=== PATIENT | female | born 1930 | race Caucasian/White ===

== ENCOUNTER 2016-09-17 08:34 | Emergency (ER) | payer MEDICARE ==
[~2016-09-17] VITALS: Ht 154.9 cm; Wt 68.9 kg
[~2016-09-17 08:34] MED LIST: ACET-1651 PO; ASPI81TA84 PO; CALC-5 PO; CHOL400T23 PO; HYDR-2164 PO; LISI-127 PO; LOPERAMIDE; NIFE60TA58 PO; SOTA80TA42 PO
[2016-09-17 08:36] VITALS: Ht 154.9 cm; Wt 68.9 kg
--- OUTSIDE RECORDS SUMMARY | 2016-09-17 08:39 | XMS REPORT | Referral Summary ---
Author Author [facility] Organization [facility] Address Unknown Phone Unavailable Care Team Providers Care Software Quality Test Engineer Name Role Phone Chun Olivo Primary Care Physician [phone] Encounter VC Date(s): 04/23/15 - 04/23/15 [facility] [address] [place] [address] [place] [id number] Discharge Diagnosis: Trochanteric bursitis of left hip Discharge Diagnosis: Osteoarthritis of left knee Discharge Disposition: 01-Home or Self Care Attending Physician: Filipe Ramires MD Admitting Physician: Filipe Ramires MD Vital Signs Most recent to 1 oldest [Reference Range]: Temperature Tympanic 36.8 degC [36.6-38.1 degC] (04/23/15 10:28 AM) Respiratory Rate 20 br/min [14-20 br/min] (04/23/15 10:28 AM) Blood Pressure 132/74 mmHg [90-140/60-90 mmHg] (04/23/15 10:28 AM) SpO2 95 % (04/23/15 10:28 AM) Problem List Condition Effective Dates Status Health Status Informant Cervical Resolved degenerative disc disease(Confirmed) Cervical herniated Resolved disc(Confirmed) Cervical spinal Resolved stenosis(Confirmed) Coronary artery Resolved disease(Confirmed) Hyperlipidemia(Confi Resolved rmed) Hypertension(Confirm Resolved ed) Neck pain(Confirmed) Resolved radiculitis cervical Resolved upper neck pain(Confirmed) Spinal Resolved stenosis(Confirmed) Spondylosis - Resolved cervical(Confirmed) Thoracic Resolved degenerative disc disease(Confirmed) Allergies, Adverse Reactions, Alerts Substance Reaction Severity Status codeine Active gabapentin Muscle aches and pains in legs. Moderate Active lisinopril COUGH Active lovastatin Active mirtazapine night smith Active verapamil Active Medications aspirin 81 mg, Oral, Daily, 0 Refill(s) Start Date: 12/30/13 Status: Ordered atorvastatin 20 mg oral tablet 20 mg 1 tabs, Oral, Daily, # 90 tabs, 0 Refill(s), Pharmacy: [facility], 1 tabs Oral Daily Start Date: 08/09/15 Status: Ordered calcium citrate 500 mg, Oral, Daily, 0 Refill(s) Start Date: 12/30/13 Status: Ordered cyanocobalamin 1000 mcg sublingual tablet 1,000 mcg 1 tabs, SubLingual, Daily, # 90 tabs, 3 Refill(s), Pharmacy: [facility] #[id number], 1 tabs SubLingual Daily,x90 days Start Date: 08/04/15 Stop Date: 07/29/16 Status: Ordered Cymbalta 60 mg oral delayed release capsule 60 mg 1 caps, Oral, Daily, # 90 caps, 3 Refill(s), Pharmacy: [facility], 1 caps Oral Daily,x90 days Start Date: 08/04/15 Stop Date: 07/29/16 Status: Ordered hydrochlorothiazide 25 mg oral tablet 25 mg 1 tabs, Oral, Daily, X 90 days, # 90 tabs, 3 Refill(s), [facility]: [facility], 1 tabs Oral Daily,x90 days Start Date: 08/04/15 Stop Date: 07/29/16 Status: Ordered KLOTRIX 10MEQ TAB SR See Instructions, Take 1 tablet by mouth daily, # 90 tabs, eRx: [facility], Take 1 tablet by mouth daily Start Date: 06/08/15 Status: Ordered losartan 50 mg oral tablet 50 mg 1 tabs, Oral, Daily, X 90 days, # 90 tabs, 3 Refill(s), [facility]acy: [facility], 1 tabs Oral Daily,x90 days Start Date: 08/04/15 Stop Date: 07/29/16 Status: Ordered Nifedical XL 60 mg oral tablet, extended release 60 mg 1 tabs, Oral, Daily, X 90 days, # 90 tabs, 3 Refill(s), Pharmacy: [facility], 1 tabs Oral Daily,x90 days Start Date: 08/04/15 Stop Date: 07/29/16 Status: Ordered potassium chloride 10 mEq oral tablet, extended release 10 mEq 1 tabs, Oral, Daily, # 90 tabs, 3 Refill(s), Pharmacy: [facility], 1 tabs Oral Daily,x90 days Start Date: 08/04/15 Stop Date: 07/29/16 Status: Ordered PriLOSEC 20 mg oral delayed release capsule 20 mg 1 caps, Oral, Daily, # 30 caps, 0 Refill(s) Start Date: 10/27/15 Status: Ordered sotalol 80 mg oral tablet 40 mg 0.5 tabs, Oral, BID, X 90 days, # 90 tabs, 3 Refill(s), Pharmacy: [facility], 0.5 tabs Oral BID,x90 days Start Date: 08/04/15 Stop Date: 07/29/16 Status: Ordered Vitamin B12 1000 mcg oral tablet 1,000 mcg 1 tabs, Oral, Daily, # 30 tabs, 0 Refill(s) Start Date: 10/27/15 Status: Ordered Vitamin D3 400 intl units oral tablet 2 tabs, Oral, Daily, 0 Refill(s) Start Date: 12/30/13 Status: Ordered Results No data available for this section Immunizations Vaccine Date Refusal Reason influenza virus vaccine, inactivated 04/08/14 influenza virus vaccine, live 04/15/10 pneumococcal 23-polyvalent vaccine 05/12/08 pneumococcal 23-polyvalent vaccine 04/21/97 tetanus-diphth toxoids (Td) adult/adol 10/13/05 zoster vaccine live 05/08/14 Procedures Procedure Date Related Diagnosis Body Site CABG - Coronary artery bypass graft 2006 Colonoscopy1 2006 Hernia repair2 2005 Breast biopsy and related procedures3 2002 Flexible sigmoidoscopy 1998 Colonoscopy4 1996 Esophagogastroduodenoscopy 1996 Repair of bladder 1996 Lymph node biopsy5 1983 Hysterectomy and bilateral 1978 salpingo-oophorectomy sample Cholecystectomy6 1970 Tubal ligation - bilateral 1966 Lymph node biopsy7 1961 1hyperplastic polyp 2Right inguinal herniorrhaphy 3Right 4Also EGD and bladder repair operation 5Left cervical node biopsy 6Also appendectomy 7Right axilla Social History Social History Type Response Smoking Status Never smoker Assessment and Plan Extracted from: Title: Ambulatory Patient Education Author: Filipe Ramires MD Date: Family Medicine Hip Bursitis Bursitis is a swelling and soreness (inflammation) of a fluid-filled sac (bursa) . This sac overlies and protects the joints. CAUSES Injury. Overuse of the muscles surrounding the joint. Arthritis. Gout. Infection. Cold weather. Inadequate warm-up and conditioning prior to activities. The cause may not be known. SYMPTOMS Mild to severe irritation. Tenderness and swelling over the outside of the hip. Pain with motion of the hip. If the bursa becomes infected, a fever may be present. Redness, tenderness , and warmth will develop over the hip. Symptoms usually lessen in 3 to 4 weeks with treatment, but can come back. TREATMENT If conservative treatment does not work, your caregiver may advise draining the bursa and injecting cortisone into the area. This may speed up the healing process. This may also be used as an initial treatment of choice. HOME CARE INSTRUCTIONS Apply ice to the affected area for 15-20 minutes every 3 to 4 hours while awake for the first 2 days. Put the ice in a plastic bag and place a towel between the bag of ice and your skin. Rest the painful joint as much as possible, but continue to put the joint through a normal range of motion at least 4 times per day. When the pain lessens , begin normal, slow movements and usual activities to help prevent stiffness of the hip. Only take [id number] or prescription medicines for pain, discomfort, or fever as directed by your caregiver. Use crutches to limit weight bearing on the hip joint, if advised. Elevate your painful hip to reduce swelling. Use pillows for propping and cushioning your legs and hips. Gentle massage may provide comfort and decrease swelling. SEEK IMMEDIATE MEDICAL CARE IF: Your pain increases even during treatment, or you are not improving. You have a fever. You have heat and inflammation over the involved bursa. You have any other questions or concerns. MAKE SURE YOU: Understand these instructions. Will watch your condition. Will get help right away if you are not doing well or get worse. Document Released: 12/01/2002 Document Revised: 09/02/2012 Document Reviewed: ExitCare Patient Information 2015 [employer]. This information is not intended to replace advice given to you by your health care provider. Make sure you discuss any questions you have with your health care provider. Follow Up With: Where: When: [address]; Via [facility] [place] [address] Business (1) Within 3 to 5 days, only if needed Comments: Extracted from: Title: Office Visit Note Author: Filipe Ramires MD Date: 04/23/15 Assessment/Plan Osteoarthritis of left knee Orthopedic consultation will be scheduled. Trochanteric bursitis of left hip She will be scheduled for orthopedic evaluation and possible steroid injection.
--- OUTSIDE RECORDS SUMMARY | 2016-09-17 08:39 | XMS REPORT | Referral Summary ---
Author Author [facility] Organization [facility] Address Unknown Phone Unavailable Care Team Providers Care Through Operator Name Role Phone Chun Olivo Primary Care Physician [phone] Encounter VC Date(s): 05/02/16 - 05/02/16 [facility], [address] [place] [id number] Discharge Diagnosis: Acute bacterial bronchitis Discharge Disposition: 01-Home or Self Care Attending Physician: Chun Olivo DO Admitting Physician: Chun Olivo DO Vital Signs Most recent to 1 oldest [Reference Range]: Temperature Tympanic 37.0 degC [36.6-38.1 degC] (05/02/16 10:29 AM) Peripheral Pulse 82 bpm Rate [60-100 bpm] (05/02/16 10:29 AM) Respiratory Rate 18 br/min [14-20 br/min] (05/02/16 10:29 AM) Blood Pressure 132/78 mmHg [90-140/60-90 mmHg] (05/02/16 10:29 AM) SpO2 95 % (05/02/16 10:29 AM) Problem List Condition Effective Dates Status Health Status Informant Cervical Resolved degenerative disc disease(Confirmed) Cervical herniated Resolved disc(Confirmed) Cervical spinal Resolved stenosis(Confirmed) Coronary artery Resolved disease(Confirmed) Hyperlipidemia(Confi Resolved rmed) Hypertension(Confirm Resolved ed) Neck pain(Confirmed) Resolved Obesity(Confirmed) Active patient radiculitis cervical Resolved upper neck pain(Confirmed) Spinal Resolved stenosis(Confirmed) Spondylosis - Resolved cervical(Confirmed) Thoracic Resolved degenerative disc disease(Confirmed) Allergies, Adverse Reactions, Alerts Substance Reaction Severity Status codeine Active gabapentin Muscle aches and pains in legs. Moderate Active lisinopril COUGH Active lovastatin Active mirtazapine night smith Active verapamil Active Medications aspirin 81 mg, Oral, Daily, 0 Refill(s) Start Date: 12/30/13 Status: Ordered Calcium 500+D tabs, Chewed, BID, 0 Refill(s) Start Date: 02/11/16 Status: Ordered cyanocobalamin 1000 mcg sublingual tablet 1,000 mcg 1 tabs, SubLingual, Daily, # 90 tabs, 3 Refill(s), Pharmacy: [facility] #[id number], 1 tabs SubLingual Daily,x90 days Start Date: 08/04/15 Stop Date: 07/29/16 Status: Ordered Cymbalta 60 mg oral delayed release capsule 60 mg 1 caps, Oral, Daily, # 90 caps, 3 Refill(s), Pharmacy: [facility], 1 caps Oral Daily,x90 days Start Date: 08/04/15 Stop Date: 07/29/16 Status: Ordered hydrochlorothiazide 25 mg oral tablet 25 mg 1 tabs, Oral, Daily, X 90 days, # 90 tabs, 3 Refill(s), Pharmacy: [facility], 1 tabs Oral Daily,x90 days Start Date: 08/04/15 Stop Date: 07/29/16 Status: Ordered losartan 50 mg oral tablet [...] Daily, # 90 tabs, 3 Refill(s), Pharmacy: [facility], 1 tabs Oral Daily,x90 days Start Date: 08/04/15 Stop Date: 07/29/16 Status: Ordered predniSONE 20 mg oral tablet 20 mg 1 tabs, Oral, Daily, X 5 days, # 5 tabs, 0 Refill(s), Pharmacy: [facility] #[id number], 1 tabs Oral Daily,x5 days Start Date: 05/02/16 Stop Date: 05/07/16 Status: Ordered Promethazine with Codeine 6.25 mg-10 mg/5 mL oral syrup 5 mL, Oral, q6hr, as needed for cough, not to exceed 30 mL/24 hours, # 120 mL, 0 Refill(s) Start Date: 05/02/16 Stop Date: 06/01/16 Status: Ordered sotalol 80 mg oral tablet 40 mg 0.5 tabs, Oral, BID, X 90 days, # 90 tabs, 3 Refill(s), Pharmacy: [facility], 0.5 tabs Oral BID,x90 days Start Date: 08/04/15 Stop Date: 07/29/16 Status: Ordered Zithromax Z-Mikey 250 mg oral tablet 1 packets, Oral, Daily, as directed on package labeling, X 5 days, # 6 tabs, 0 Refill(s), Pharmacy: [facility] #[id number], 1 packets Oral Daily,x5 days, Instr:as directed on package labeling Start Date: 05/02/16 Stop Date: 05/07/16 Status: Ordered Results No data available for [...] smoker Assessment and Plan Extracted from: Title: Office Visit Note Author: Chun Olivo DO Date: 05/02/16 Assessment/Plan Acute bacterial bronchitis 1. Findings concerning for bacterial bronchitis 2. Zithromax taken as directed for 5 days 3. Prednisone 20 mg daily for 5 days 4. Promethazine with codeine, 5 mL every 6 hours as needed for coughing 5. Follow-up for worsening presentation Ordered: Office Visit Level 4 Est [address]180
--- OUTSIDE RECORDS SUMMARY | 2016-09-17 08:39 | XMS REPORT | Referral Summary ---
Author Author [facility] Organization [facility] Address Unknown Phone Unavailable Care Team Providers Care Continuing Education Specialist Name Role Phone Chun Olivo Primary Care Physician [phone] Encounter VC Date(s): 10/27/15 - 10/27/15 [facility] [address] [place] [address] [place] [id number] Discharge Diagnosis: Change in bowel habits Discharge Disposition: 01-Home or Self Care Attending Physician: Crow Aguayo MD Admitting Physician: Crow Aguayo MD Referring Physician: Chun Olivo DO Vital Signs Most recent to 1 oldest [Reference Range]: Temperature Tympanic 36.8 degC [36.6-38.1 degC] (10/27/15 11:01 AM) Blood Pressure 140/76 mmHg [90-140/60-90 mmHg] (10/27/15 11:01 AM) Problem List Condition Effective Dates Status [...] Daily, # 90 tabs, 0 Refill(s), Pharmacy: [facility], 1 tabs Oral Daily Start Date: 08/09/15 Status: Ordered calcium citrate 500 mg, Oral, Daily, 0 Refill(s) Start Date: 12/30/13 Status: Ordered cyanocobalamin 1000 mcg sublingual tablet 1,000 mcg 1 tabs, SubLingual, Daily, # 90 tabs, 3 Refill(s), Pharmacy: [facility] #[id number], 1 tabs SubLingual Daily,x90 days Start Date: [...] days, # 90 tabs, 3 Refill(s), Pharmacy: [facility], 1 tabs Oral Daily,x90 days [...] days, # 90 tabs, 3 Refill(s), Pharmacy: [facility], 1 tabs Oral Daily,x90 days [...] Daily, # 90 tabs, 3 Refill(s), Pharmacy: [facility], 1 tabs Oral Daily,x90 days Start Date: 08/04/15 Stop Date: 07/29/16 Status: Ordered PriLOSEC 20 mg oral delayed release capsule 20 mg 1 caps, Oral, Daily, # 30 caps, 0 Refill(s) Start Date: 10/27/15 Status: Ordered sotalol 80 mg oral tablet 40 mg 0.5 tabs, Oral, BID, X 90 days, # 90 tabs, 3 Refill(s), Pharmacy: [facility], 0.5 tabs Oral BID,x90 days [...] Extracted from: Title: Ambulatory Patient Education Author: Crow Aguayo MD Date: 10/26 Family Medicine Diarrhea Diarrhea is frequent loose and watery bowel movements. It can cause you to feel weak and dehydrated. Dehydration can cause you to become tired and thirsty, have a dry mouth, and have decreased urination that often is dark yellow. Diarrhea is a sign of another problem, most often an infection that will not last long. In most cases, diarrhea typically lasts 23 days. However, it can last longer if it is a sign of something more serious. It is important to treat your diarrhea as directed by your caregiver to lessen or prevent future episodes of diarrhea. CAUSES Some common causes include: Gastrointestinal infections caused by viruses, bacteria, or parasites. Food poisoning or food allergies. Certain medicines, such as antibiotics, chemotherapy, and laxatives. Artificial sweeteners and fructose. Digestive disorders. HOME CARE INSTRUCTIONS Ensure adequate fluid intake (hydration): Have 1 cup (8 oz) of fluid for each diarrhea episode. Avoid fluids that contain simple sugars or sports drinks , fruit juices, whole milk products, and sodas. Your urine should be clear or pale yellow if you are drinking enough fluids. Hydrate with an oral rehydration solution that you can purchase at pharmacies, retail stores, and online. You can prepare an oral rehydration solution at home by mixing the following ingredients together: tsp table salt. tsp baking soda. tsp salt substitute containing potassium chloride. 1 tablespoons sugar. 1 L (34 oz) of water. Certain foods and beverages may increase the speed at which food moves through the gastrointestinal (GI) tract. These foods and beverages should be avoided and include: Caffeinated and alcoholic beverages. High-fiber foods, such as raw fruits and vegetables, nuts, seeds, and whole grain breads and cereals. Foods and beverages sweetened with sugar alcohols, such as xylitol, sorbitol, and mannitol. Some foods may be well tolerated and may help thicken stool including: Starchy foods, such as rice, toast, pasta, low-sugar cereal, oatmeal, grits, baked potatoes, crackers, and bagels. Bananas. Applesauce. Add probiotic-rich foods to help increase healthy bacteria in the GI tract, such as yogurt and fermented milk products. Wash your hands well after each diarrhea episode. Only take owug-slw-gfttkhk or prescription medicines as directed by your caregiver. Take a warm bath to relieve any burning or pain from frequent diarrhea episodes. SEEK IMMEDIATE MEDICAL CARE IF: You are unable to keep fluids down. You have persistent vomiting. You have blood in your stool, or your stools are black and tarry. You do not urinate in 68 hours, or there is only a small amount of very dark urine. You have abdominal pain that increases or localizes. You have weakness, dizziness, confusion, or light-headedness. You have a severe headache. Your diarrhea gets worse or does not get better. You have a fever or persistent symptoms for more than 23 days. You have a fever and your symptoms suddenly get worse. MAKE SURE YOU: Understand these instructions. Will watch your condition. Will get help right away if you are not doing well or get worse. This information is not intended to replace advice given to you by your health care provider. Make sure you discuss any questions you have with your health care provider. Document Released: 06/01/2003 Document Revised: 10/26/2014 Document Reviewed: ExitCare Patient Information 2015 [employer], [employer]. No follow up information was provided.
--- OUTSIDE RECORDS SUMMARY | 2016-09-17 08:39 | XMS REPORT | Referral Summary ---
Author Author [facility], [facility] Organization [facility] Address Unknown Phone Unavailable Care Team Providers Care Edge Stainer Name Role Phone Chun Olivo Primary Care Physician [phone] Encounter VC Date(s): 02/11/16 - 02/11/16 [facility], [address] [place] [id number] Discharge Diagnosis: Greater trochanteric bursitis of left hip Discharge Diagnosis: History of decreased renal function Discharge Disposition: 01-Home or Self Care Attending Physician: Chun Olivo DO Admitting Physician: Chun Olivo DO Vital Signs Most recent to 1 oldest [Reference Range]: Temperature Tympanic 36.8 degC [36.6-38.1 degC] (02/11/16 10:24 AM) Peripheral Pulse 80 bpm Rate [60-100 bpm] (02/11/16 10:24 AM) Blood Pressure 128/62 mmHg [90-140/60-90 mmHg] (02/11/16 10:24 AM) Problem List Condition Effective Dates Status [...] Daily, # 90 tabs, 3 Refill(s), Pharmacy: [facility] #[id number], 1 tabs SubLingual Daily,x90 days Start Date: [...] Date: 08/04/15 Stop Date: 07/29/16 Status: Ordered sotalol 80 mg oral tablet 40 mg 0.5 tabs, Oral, BID, X 90 days, # 90 tabs, 3 Refill(s), Pharmacy: [facility], 0.5 tabs Oral BID,x90 days Start Date: 08/04/15 Stop Date: 07/29/16 Status: Ordered Results No data available for this section Immunizations Vaccine Date Refusal Reason influenza virus vaccine, inactivated 04/08/14 influenza virus vaccine, live 04/15/10 pneumococcal 23-polyvalent vaccine 05/12/08 pneumococcal 23-polyvalent vaccine 04/21/97 tetanus-diphth toxoids (Td) adult/adol 10/13/05 zoster vaccine live 05/08/14 Procedures Procedure Date Related Diagnosis Body Site Arthrocentesis, aspiration and/or injection, 02/11/16 major joint or bursa (eg, shoulder, hip, knee, subacromial bursa); without ultrasound guidance CABG - Coronary artery bypass graft 2006 Colonoscopy1 2006 Hernia repair2 2005 Breast biopsy and related procedures3 2002 Flexible sigmoidoscopy 1998 Colonoscopy1996 Esophagogastroduodenoscopy 1996 Repair of bladder 1996 Lymph node biopsy1983 Hysterectomy and bilateral 1978 salpingo-oophorectomy sample Cholecystectomy6 1970 Tubal ligation - bilateral 1966 Lymph node biopsy7 1961 1hyperplastic polyp 2Right inguinal herniorrhaphy 3Right 4Also EGD and bladder repair operation 5Left cervical node biopsy 6Also appendectomy 7Right axilla Social History Social History Type Response Smoking Status Never smoker Assessment and Plan Extracted from: Title: Office Visit Note Author: Chun Olivo DO Date: 02/11/16 Assessment/Plan 1.Greater trochanteric bursitis of left hip Clinical finding consistent with greater trochanteric bursitis. Repeat injection recommended to which the patient agreed. Procedure:Greater trochanteric bursa injection Location:Left hip Medication:2 mL of lidocaine without epinephrine, 2 mL of Marcaine and 80 mg of Kenalog. Description: Following informed consent the patient was laid in the right lateral recumbent position. The area for greatertrochanteric bursae was identified. The area was cleansed with Betadine to create a sterile field. Using sterile technique the combined above solution was injectedwithout difficulty. Dry dressing was applied and wound care instructions provided. Ordered: Arthro/Asp Major Joint Inj (Shoulder, Hip, Knee) Office Visit Level 3 Est 70896 2.History of decreased renal function 1. Her repeat lab is for normal renal function. 2. Avoid NSAIDs. 3. Follow-up as needed. Ordered: Office Visit Level 3 Est 19563 Pain in left hip As above. Ordered: Arthro/Asp Major Joint Inj (Shoulder, Hip, Knee)
--- OUTSIDE RECORDS SUMMARY | 2016-09-17 08:39 | XMS REPORT | Referral Summary ---
Author Author [facility], [facility] Organization [facility] Address Unknown Phone Unavailable Care Team Providers Care Editor Index Name Role Phone Chun Olivo Primary Care Physician [phone] Encounter VC Date(s): 10/07/15 - 10/07/15 [facility], [address] [place] [address] Discharge Diagnosis: Stress At Home Discharge Diagnosis: GERD (gastroesophageal reflux disease) Discharge Diagnosis: Change in bowel habit Discharge Disposition: 01-Home or Self Care Attending Physician: Chun Olivo DO Admitting Physician: Chun Olivo DO Vital Signs Most recent to 1 oldest [Reference Range]: Temperature Tympanic 36.7 degC [36.6-38.1 degC] (10/07/15 8:32 AM) Peripheral Pulse 74 bpm Rate [60-100 bpm] (10/07/15 8:32 AM) Blood Pressure 143/70 mmHg [90-140/60-90 mmHg] *HI* (10/07/15 8:32 AM) Problem List Condition Effective Dates Status [...] Daily, # 90 tabs, 0 Refill(s), [facility]: [email or web address], 1 tabs Oral Daily Start Date: 08/09/15 Status: Ordered calcium citrate 500 mg, Oral, Daily, 0 Refill(s) Start Date: 12/30/13 Status: Ordered cyanocobalamin 1000 mcg sublingual tablet 1,000 mcg 1 tabs, SubLingual, Daily, # 90 tabs, 3 Refill(s), Pharmacy: [facility] #[id number], 1 tabs SubLingual Daily,x90 days Start Date: 08/04/15 Stop Date: 07/29/16 Status: Ordered Cymbalta 60 mg oral delayed release capsule 60 mg 1 caps, Oral, Daily, # 90 caps, 3 Refill(s), [facility]: [facility], 1 caps Oral Daily,x90 days Start Date: 08/04/15 Stop Date: 07/29/16 Status: Ordered hydrochlorothiazide 25 mg oral tablet 25 mg 1 tabs, Oral, Daily, X 90 days, # 90 tabs, 3 Refill(s), [facility], 1 tabs Oral Daily,x90 days Start [...] days, # 90 tabs, 3 Refill(s), [facility]: [facility], 1 tabs Oral Daily,x90 days Start Date: 08/04/15 Stop Date: 07/29/16 Status: Ordered Nifedical XL 60 mg oral tablet, extended release 60 mg 1 tabs, Oral, Daily, X 90 days, # 90 tabs, 3 Refill(s), [facility]acy: [facility], 1 tabs Oral Daily,x90 days Start Date: 08/04/15 Stop Date: 07/29/16 Status: Ordered potassium chloride 10 mEq oral tablet, extended release 10 mEq 1 tabs, Oral, Daily, # 90 tabs, 3 Refill(s), [facility], 1 tabs Oral Daily,x90 days Start Date: 08/04/15 Stop Date: 07/29/16 Status: Ordered sotalol 80 mg oral tablet 40 mg 0.5 tabs, Oral, BID, X 90 days, # 90 tabs, 3 Refill(s), Pharmacy: [facility], 0.5 tabs Oral BID,x90 days Start Date: 08/04/15 Stop Date: 07/29/16 Status: Ordered Vitamin D3 400 intl units [...] Visit Note Author: Chun Olivo DO Date: 10/07/15 Assessment/Plan Change in bowel habit 1. We will refer her to Dr. Recio for farther evaluation regarding the changes in bowel habit and determining if she needs upper and lower GI evaluation. Ordered: Office Visit Level 4 Est 55851 GERD (gastroesophageal reflux disease) 1. Recommended omeprazole 20 mg daily. She may add Zantac 75 milligrams twice a day. 2. Follow up if worsening presentation. Ordered: Office Visit Level 4 Est 16816 Stress At Home 1. We had a long discussion regarding her stressors related to her property. I recommended that she tries sitting down with her [id number] and figuring out an amicable solution together dispute. 2. Over 25 minutes were spent [id number] with this patient today, greater than 50 percent of the time was spent with counseling.
--- OUTSIDE RECORDS SUMMARY | 2016-09-17 08:39 | XMS REPORT | Continuity of Care Document ---
Author Author [facility] Organization [facility] Address Unknown Phone Unavailable Allergies Medications Problems Procedures Results Encounters ACCT No. Visit Date/Time Discharge Status Pt. Type Provider Facility Loc./Unit Complaint [id number] 09/10/2013 13:24:00 09/10/2013 23 :59:59 CLS Outpatient [id number] 07/09/2013 13:59:00 07/09/2013 23 :59:59 CLS Outpatient
--- OUTSIDE RECORDS SUMMARY | 2016-09-17 08:39 | XMS REPORT | Referral Summary ---
Author Author [facility] Organization [facility] Address Unknown Phone Unavailable Care Team Providers Care Knifeman Name Role Phone Chun Olivo Primary Care Physician [phone] Encounter VC Date(s): 11/03/15 - 11/03/15 [facility], [address] [place] [address] Discharge Diagnosis: HTN (hypertension) Discharge Diagnosis: Change in bowel habit Discharge Diagnosis: Mixed hyperlipidemia Discharge Disposition: 01-Home or Self Care Attending Physician: Chun Olivo DO Admitting Physician: Chun Olivo DO Vital Signs Most recent to 1 oldest [Reference Range]: Temperature Tympanic 36.4 degC [36.6-38.1 degC] *LOW* (11/03/15 8:43 AM) Apical Heart Rate 84 bpm [60-100 bpm] (11/03/15 8:43 AM) Blood Pressure 132/72 mmHg [90-140/60-90 mmHg] (11/03/15 8:43 AM) SpO2 95 % (11/03/15 8:43 AM) Problem List Condition Effective Dates Status [...] Daily, # 90 tabs, 3 Refill(s), Pharmacy: [facility] #[id number], 1 tabs SubLingual Daily,x90 days Start Date: [...] days, # 90 tabs, 3 Refill(s), [facility], 1 tabs Oral Daily,x90 days Start [...] Daily, # 90 tabs, 3 Refill(s), [facility], 1 tabs Oral Daily,x90 days [...] Hysterectomy and bilateral 1978 salpingo-oophorectomy sample Cholecystectomy6 1969 Tubal ligation - bilateral 1966 Lymph node biopsy7 1961 1hyperplastic polyp 2Right inguinal herniorrhaphy 3Right 4Also EGD and bladder repair operation 5Left cervical node biopsy 6Also appendectomy 7Right axilla Social History Social History Type Response Smoking Status Never smoker Assessment and Plan Extracted from: Title: Office Visit Note Author: Chun Olivo DO Date: 11/03/15 Assessment/Plan Change in bowel habit 1. Since she continues to have painful bowel movements I recommended she follow-up with Dr. Recio. Patient voiced understanding. Ordered: Office Visit Level 4 Est 41989 CKD (chronic kidney disease) stage 3, GFR 30-59 ml/min 1. Recent labs demonstrate CKD stage III. 2. Pathophysiology of this presentation was discussed in detail with the patient. 3. Repeat basic metabolic profile in 3 months. If worsening presentation then we may need to adjust her medications in addition to considering sending her to nephrology. Ordered: Office Visit Level 4 Est 12622 HTN (hypertension) 1. Blood pressures well controlled. Continue with same regimen of medications. 2. Low salt diet recommended. 3. Follow-up in 6 months for reevaluation. Ordered: Office Visit Level 4 Est 80795 Mixed hyperlipidemia 1. Her cholesterol and LDL has improved significantly with the atorvastatin. 2. Continue with atorvastatin 20 mg daily. 3. Recheck lipids in one year. Ordered: Office Visit Level 4 Est 16550
--- OUTSIDE RECORDS SUMMARY | 2016-09-17 08:39 | XMS REPORT | Referral Summary ---
Author Author [facility] Organization [facility] Address Unknown Phone Unavailable Care Team Providers Care Manufacturing Analyst Name Role Phone BenignoChun mason Primary Care Physician [phone] Encounter VC Date(s): 11/02/14 - 11/02/14 [facility] [address] [facility] [place], [place] [address] Discharge Diagnosis: Calcaneal fracture Discharge Disposition: 01-Home or Self Care Attending Physician: Ken Child DPM Admitting Physician: Ken Child DPM Vital Signs No data available for this section Problem List Condition Effective Dates Status Health [...] 0 Refill(s) Start Date: 12/30/13 Status: Ordered calcium citrate 500 mg, Oral, Daily, 0 Refill(s) Start Date: 12/30/13 Status: Ordered Cymbalta 60 mg oral delayed release capsule 60 mg 1 caps, Oral, Daily, # 90 caps, 0 Refill(s), Pharmacy: [facility], 1 caps Oral Daily Start Date: 03/10/15 Status: Ordered hydrochlorothiazide 25 mg oral tablet 25 mg, Oral, Daily, # 90 tabs, 0 Refill(s), [facility]: [facility], 25 mg Oral Daily Start Date: 03/10/15 Status: Ordered losartan 50 mg oral tablet 1 tabs, Oral, Daily, # 90 tabs, 3 Refill(s), [facility], 1 tabs Oral Daily,x90 days Start Date: 04/17/14 Stop Date: 04/12/15 Status: Ordered Nifedical XL 60 mg oral tablet, extended release See Instructions, Take 1 tablet by mouth daily, # 90 unknown unit, [facility]Rx: [facility], Take 1 tablet by mouth daily Start Date: 02/09/15 Status: Ordered potassium chloride 10 mEq oral tablet, extended release See Instructions, TAKE ONE TABLET BY MOUTH DAILY, # 90 tabs, 3 Refill(s), Pharmacy: [facility], TAKE ONE TABLET BY MOUTH DAILY Start Date: 04/17/14 Status: Ordered sotalol 80 mg oral tablet See Instructions, Take one-half tablet by mouth twice daily, # 90 tabs, 0 Refill (s), Pharm[facility]: [facility], Pt needs to schedule appointment before additional refills will be sent., Take one-half tablet by mouth twice daily Start Date: 02/16/15 Status: Ordered Vitamin D3 400 intl units [...] Extracted from: Title: Office Visit Note Author: Ken Child DPM Date: 11/02/14 Assessment/Plan Calcaneal fracture Date of injury 09/25/2014. Patient may weight-bear as tolerated in tennis shoe around the house. Advised patient to wear cam walker outside of house next 2 weeks and may transition into regular shoe gear as tolerated thereafter. Follow-up if condition worsens.
--- OUTSIDE RECORDS SUMMARY | 2016-09-17 08:39 | XMS REPORT | Referral Summary ---
Author Author [facility] Organization [facility] Address Unknown Phone Unavailable Care Team Providers Care Pocketed Spring Assembler Name Role Phone Bryan Ramires Primary Care Physician [phone] Encounter Date(s): 11/02/14 - 11/02/14 [facility] 1944 [facility] [place], [place] [address] Discharge Diagnosis: Calcaneal fracture Discharge Disposition: 01-Home [...] Daily, # 90 caps, 0 Refill(s), Pharmacy: [facility], 1 caps Oral Daily Start Date: 03/10/15 Status: Ordered hydrochlorothiazide 25 mg oral tablet 25 mg, Oral, Daily, # 90 tabs, 0 Refill(s), [facility], 25 mg Oral Daily Start Date: 03/10/15 Status: Ordered losartan 50 mg oral tablet 1 tabs, Oral, Daily, # 90 tabs, 3 Refill(s), [facility], 1 tabs Oral Daily,x90 days Start Date: 04/17/14 Stop Date: 04/12/15 Status: Ordered Nifedical XL 60 mg oral tablet, extended release See Instructions, Take 1 tablet by mouth daily, # 90 unknown unit, [facility]: [facility], Take 1 tablet by mouth daily Start Date: 02/09/15 Status: Ordered potassium chloride 10 mEq oral tablet, extended release See Instructions, TAKE ONE TABLET BY MOUTH DAILY, # 90 tabs, 3 Refill(s), Pharm[facility]: [facility], TAKE ONE TABLET BY MOUTH DAILY Start Date: 04/17/14 Status: Ordered sotalol 80 mg oral tablet See Instructions, Take one-half tablet by mouth twice daily, # 90 tabs, 0 Refill (s), [facility], Pt needs to schedule appointment [...]
--- OUTSIDE RECORDS SUMMARY | 2016-09-17 08:40 | XMS REPORT | Continuity of Care Document ---
Author Author Daisy Briggs LPN, [facility] Ambulatory Address [address] [place] [id number] Phone Unavailable Care Team Providers Care Outside Cutter Hand Name Role Phone Filipe Ramires CHANELLE Unavailable Payers Payer name Insurance type Covered republican ID Authorization(s) Unknown Problems Condition Effective Dates (start - stop) Clinical Status Abdominal pain, generalized - *Chronic Subscapular pain - *Acute UTI (urinary tract infection) - *Acute Tinea pedis - *Acute Ischemic heart disease - *Chronic Abdominal pain - Episodic Cardiac dysrhythmia, unspecified - Episodic Hypertension, Benign - *Chronic Sinusitis, acute - *Acute GERD - *Controlled Dysphagia, unspecified - *Acute GERD - *Controlled CAD, Unspecified - *Chronic Hypertension, Benign - *Chronic Edema - *Resolved Pain in limb - *Acute Backache - *Chronic Chronic ischemic heart disease, unspecified - *Chronic Hypertension, Benign - *Chronic 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 - CERVICAL DISC DISPLACMNT - 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 - CERVICAL SPINAL STENOSIS - CERVICALGIA - BRACHIAL NEURITIS NOS - PURE HYPERCHOLESTEROLEM - BENIGN HYPERTENSION - Abdominal pain, other specified site - Episodic Constipation, unspecified - *Chronic Chronic ischemic heart disease, unspecified - *Chronic Cardiac dysrhythmia, unspecified - Episodic Hypertension, Benign - *Chronic Back pain - *Chronic Actinic keratosis - *Acute Allergic rhinitis, cause unspecified - Episodic Depression - *Acute Abdominal pain, left lower quadrant - Intermittent Chronic ischemic heart disease, unspecified - *Chronic Knee pain, left Fe - *Chronic Abdominal Pain - *Acute Chronic ischemic heart disease, unspecified - *Chronic Lumbago - *Acute Diarrhea - *Acute Nausea alone - *Acute Hyponatremia - *Acute Arrhythmia - *Controlled Depression - Improved Hypertension, Benign - *Chronic Chronic ischemic heart disease, unspecified - *Chronic Hypercholesterolemia - *Chronic Dysuria - *Acute Thrombosed external hemorrhoid - *Acute Chronic ischemic heart disease, unspecified - *Chronic Weakness of both legs - Episodic Dyspnea - *Chronic Statin intolerance - *Chronic Chronic ischemic heart disease, unspecified - *Chronic Hypercholesterolemia - *Chronic Hypertension, Benign - *Chronic GERD (gastroesophageal reflux disease) - *Chronic Leg pain - *Acute Edema - *Resolved Fever - *Acute Primary osteoarthritis of one knee - *Symptomatic Backache - *Chronic Chronic ischemic heart disease, unspecified - *Chronic Cardiac dysrhythmia, unspecified - Episodic Actinic keratosis - *Chronic Rib fracture - *Acute Family History Family Member Diagnosis Age At Onset Status Sister (Unknown) Hypertension Yes Brother (Alive) Myocardial infarction 66 (onset) Yes Sister (Unknown) Renal disease Yes Mother (Unknown) Heart disease Yes Father (Unknown) Myocardial infarction Yes Brother (Unknown) Cancer - prostate Yes Sister (Unknown) Cancer - colon Yes Brother (Unknown) Leukemia Yes Social History Social History Element Description Quantity Unknown Allergies, Adverse Reactions, Alerts Substance Reaction Severity Status CODEINE SULFATE Unknown ATORVASTATIN CALCIUM Unknown VERAPAMIL Unknown LOVASTATIN Unknown MIRTAZAPINE night smith Unknown GABAPENTIN Muscle aches and pains in legs. moderate Medications Medication Instructions Dosage Effective Dates (start - stop) Status aspirin 81 mg tablet,delayed release take 1 tablet (81MG) by oral route every day 81 MG - Active IMODIUM A-D (unknown strength) Take as needed - Active Vitamin D3 400 unit capsule Take 2 tablets daily - Active Tylenol Extra Strength 500 mg tablet take 2 tablet (1000MG) by oral route every 6 hours as needed 1000 MG - Active Calcio Sherri 500 mg tablet take 2 Tablet by Oral route every day 0 - Active Mucinex 600 mg tablet,extended release take 1 tablet (600MG) by oral route every 12 hours as needed 600 MG - Active Lortab 5 mg-500 mg tablet take 1 tablet by oral route every 4 - 6 hours as needed for pain 0 - Active Cymbalta 30 mg capsule,delayed release take 1 capsule (30MG) by oral route every day 30 MG - Active hydrochlorothiazide 25 mg tablet Take 1 tablet by mouth every day. 2013 - Active lisinopril 10 mg tablet Take 1 tablet by mouth every day. - Active nifedipine ER 60 mg tablet,extended release Take 1 tablet by mouth every day. - Active sotalol 80 mg tablet Take 0.5 tablets by mouth twice a day. - Active Immunizations Vaccine Date Status Comments flu (split) (3 yrs or older) completed - Completed reason: source unspecified Td (adult) completed - Completed reason: source unspecified pneumo (2 yrs or older) (PPV23) completed - Completed reason: source unspecified pneumo (2 yrs or older) (PPV23) completed - Completed reason: source unspecified Results Test Name Date and Time Measure Units Reference Range Abnormal Flag Comments Unknown Vital Signs Date / Time: Height Weight Pulse Rate Blood Pressure Temperature /14:00:00 61.50 in 146.00 lbs 68 /min 136/70 mm[Hg] Procedures Procedure Date Unknown Encounters Encounter Location Date Patient Visit [facility] Patient Visit [facility] Patient Visit [facility] Patient Visit [facility] Patient Visit [facility] Patient Visit [facility] Patient Visit Conversion Patient Visit [facility] Patient Visit Patient Visit [facility] Patient Visit [facility] Patient Visit [facility] Patient Visit [facility] Patient Visit [facility] Patient Visit [facility] Patient Visit [facility] Patient Visit [facility] Patient Visit [facility] Patient Visit [facility] Patient Visit [facility] Patient Visit [facility] New Patient Visit [facility] Surg Patient Visit [facility] New IM Patient Visit [facility] New IM Patient Visit [facility] New Patient Visit [facility] New Advance Directives Directive Effective Date Unknown
--- OUTSIDE RECORDS SUMMARY | 2016-09-17 08:40 | XMS REPORT | Referral Summary ---
Author Author [facility] Organization [facility] Address Unknown Phone Unavailable Care Team Providers Care Ehs Teacher Name Role Phone Bryan Ramires Primary Care Physician [phone] Encounter Date(s): 11/02/14 - 11/02/14 [facility] 1944 [facility] [place] [address] Discharge Diagnosis: Calcaneal fracture Discharge Disposition: 01-Home [...] Daily, # 90 caps, 0 Refill(s), Pharmacy: [facility], 1 caps Oral Daily Start Date: 03/10/15 Status: Ordered hydrochlorothiazide 25 mg oral tablet 25 mg, Oral, Daily, # 90 tabs, 0 Refill(s), [facility]: [facility], 25 mg Oral Daily Start Date: 03/10/15 Status: Ordered losartan 50 mg oral tablet 1 tabs, Oral, Daily, # 90 tabs, 3 Refill(s), Pharm[facility]: [facility], 1 tabs Oral Daily,x90 days Start Date: 04/17/14 Stop Date: 04/12/15 Status: Ordered Nifedical XL 60 mg oral tablet, extended release See Instructions, Take 1 tablet by mouth daily, # 90 unknown unit, [facility]: [facility], Take 1 tablet by mouth daily Start Date: 02/09/15 Status: Ordered potassium chloride 10 mEq oral tablet, extended release See Instructions, TAKE ONE TABLET BY MOUTH DAILY, # 90 tabs, 3 Refill(s), [facility], TAKE ONE TABLET BY MOUTH DAILY Start Date: 04/17/14 Status: Ordered sotalol 80 mg oral tablet See Instructions, Take one-half tablet by mouth twice daily, # 90 tabs, 0 Refill (s), [facility]: [facility], Pt needs to schedule appointment [...]
--- OUTSIDE RECORDS SUMMARY | 2016-09-17 08:40 | XMS REPORT | Referral Summary ---
Author Author [facility], [facility] Medicine Organization [facility] Address Unknown Phone Unavailable Care Team Providers Care Dress Shoe Inspector Name Role Phone Chun Olivo Primary Care Physician [phone] Encounter VC Date(s): 08/21/16 - 08/21/16 [facility], [address] [place] [id number] Discharge Diagnosis: Acute bacterial bronchitis Discharge Disposition: 01-Home or Self Care Attending Physician: Chun Olivo DO Admitting Physician: Chun Olivo DO Vital Signs Most recent to 1 oldest [Reference Range]: Temperature Oral 36.8 degC [35.8-37.3 degC] (08/21/16 1:13 PM) Peripheral Pulse 70 bpm Rate [60-100 bpm] (08/21/16 1:13 PM) Respiratory Rate 16 br/min [14-20 br/min] (08/21/16 1:13 PM) Blood Pressure 122/68 mmHg [90-140/60-90 mmHg] (08/21/16 1:13 PM) Problem List Condition Effective Dates Status Health [...] mg, Oral, Daily, 0 Refill(s) Start Date: 7/8/14 Status: Ordered Calcium 500+D tabs, Chewed, BID, 0 Refill(s) Start Date: 02/11/16 Status: Ordered cyanocobalamin 1000 mcg sublingual tablet 1,000 mcg 1 tabs, SubLingual, Daily, # 90 tabs, 3 Refill(s), Pharmacy: [facility] #[id number], 1 tabs SubLingual Daily,x90 days Start Date: 08/04/15 Stop Date: 07/29/16 Status: Ordered DULoxetine 60 mg oral delayed release capsule See Instructions, Take 1 capsule by mouth daily, # 90 caps, 2 Refill(s), [facility]Rx: [facility] Start Date: 08/16/16 Status: Ordered hydroCHLOROthiazide 25 mg oral tablet See Instructions, Take 1 tablet by mouth daily, # 90 tabs, 2 Refill(s), [facility]Rx: [facility], Take 1 tablet by mouth daily Start Date: 08/16/16 Status: Ordered losartan 50 mg oral tablet See Instructions, Take 1 tablet by mouth daily, # 90 tabs, 2 Refill(s), eRx: [facility] Start Date: 08/16/16 Status: Ordered Nifedical XL 60 mg oral tablet, extended release See Instructions, Take 1 tablet by mouth daily, # 90 Each, 2 Refill(s), [facility]Rx: [facility] Start Date: 06/06/16 Status: Ordered potassium chloride 10 mEq oral tablet, extended release See Instructions, Take 1 tablet by mouth daily, # 90 tabs, 2 Refill(s), [facility]Rx: [facility], Take 1 tablet by mouth daily Start Date: 06/06/16 Status: Ordered predniSONE 20 mg oral tablet 20 mg 1 tabs, Oral, Daily, X 5 days, # 5 tabs, 0 Refill(s), Pharmacy: [facility] #[id number], 1 tabs Oral Daily,x5 days Start Date: 08/21/16 Stop Date: 08/26/16 Status: Ordered sotalol 80 mg oral tablet See Instructions, Take one-half tablet by mouth twice a day, # 90 tabs, 2 Refill(s), [facility]Rx: [facility] Start Date: 06/06/16 Status: Ordered Results No data available for this section Immunizations Given and Recorded Vaccine Date Status Refusal Reason influenza virus vaccine, inactivated 04/08/14 Recorded influenza virus vaccine, live 04/15/10 Given pneumococcal 23-polyvalent vaccine 05/12/08 Recorded pneumococcal 23-polyvalent vaccine 04/21/97 Recorded tetanus-diphth toxoids (Td) adult/adol 10/13/05 Given zoster vaccine live 05/08/14 Given Procedures Procedure Date Related Diagnosis Body Site [...] Visit Note Author: Chun Olivo DO Date: 08/21/16 Assessment/Plan Acute bacterial bronchitis 1. Suspect bacterial bronchitis 2. Z-Mikey, take as directed for 5 days. 3. [id number] daily for 5 days. 4. Follow up if worsening. Ordered: predniSONE, 20 mg 1 tabs, Oral, Daily, X 5 days, # 5 tabs, 0 Refill(s), Pharmacy: [facility] #[id number], 1 tabs Oral Daily,x5 days Office Visit Level 4 Est 30965
--- OUTSIDE RECORDS SUMMARY | 2016-09-17 08:40 | XMS REPORT | Referral Summary ---
Author Author [facility] Organization [facility] Address Unknown Phone Unavailable Care Team Providers Care Coke Wheeler Name Role Phone Bryan Ramires Primary Care Physician [phone] Encounter VC Date(s): 04/23/15 - 04/23/15 [facility] [address] [place] [address] ZAKIYA Cabrera [id number] Discharge Diagnosis: Trochanteric bursitis of left hip [...] Daily, # 90 caps, 0 Refill(s), [facility]acy: [facility], 1 caps Oral Daily Start Date: 03/10/15 Status: Ordered hydrochlorothiazide 25 mg oral tablet 25 mg, Oral, Daily, # 90 tabs, 0 Refill(s), [facility]: [facility], 25 mg Oral Daily Start Date: 03/10/15 Status: Ordered losartan 50 mg oral tablet 1 tabs, Oral, Daily, # 90 tabs, 3 Refill(s), [facility], 1 tabs Oral Daily,x90 days Start [...] DAILY, # 90 tabs, 3 Refill(s), [facility], TAKE ONE TABLET BY MOUTH DAILY Start Date: 04/17/14 Status: Ordered sotalol 80 mg oral tablet See Instructions, Take one-half tablet by mouth twice daily, # 90 tabs, 0 Refill (s), [facility], Pt needs to schedule appointment [...] bypass graft 2006 Colonoscopy1 2006 Hernia repair2 2006 Breast biopsy and related procedures3 2002 Flexible [...] prevent stiffness of the hip. Only take [id number] or prescription medicines for pain, discomfort, or [...] Released: 12/01/2002 Document Revised: 09/02/2012 Document Reviewed: [facility] Patient Information [address] [facility]. This information is not intended to replace advice given to you by your health care provider. Make sure you discuss any questions you have with your health care provider. Follow Up With: Where: When: Filipe Ramires [address] [place] [address] Drive; [place] [address] Business (1) Within 3 to 5 days, only if needed Comments: Extracted from: Title: Office Visit Note Author: Filipe Ramires MD Date: 04/23/15 Assessment/Plan Osteoarthritis of left knee Orthopedic consultation will be scheduled. Trochanteric bursitis of left hip She will be scheduled for orthopedic evaluation and possible steroid injection.
--- OUTSIDE RECORDS SUMMARY | 2016-09-17 08:40 | XMS REPORT | Referral Summary ---
Author Organization Unknown Address Unknown Phone Unavailable Care Team Providers Care Vacuum Tank Tender Name Role Phone Bryan Ramires Primary Care Physician [phone] Encounter VC Date(s): 09/09/14 - 09/09/14 [facility], Cardiology [address] [place] [address] ZAKIYA Cabrera [id number] Discharge Diagnosis: Hypercholesterolemia Discharge Diagnosis: Dyspepsia Discharge Diagnosis: Coronary heart disease Discharge Diagnosis: Statin intolerance Discharge Diagnosis: Grief Discharge Disposition: Home or Self Care Attending Physician: Michel White MD Admitting Physician: Michel White MD Referring Physician: Filipe Ramires MD Vital Signs Most recent to 1 oldest [Reference Range]: Peripheral Pulse 68 bpm Rate [60-100 bpm] (09/09/14 2:36 PM) Blood Pressure 126/68 mmHg [90-140/60-90 mmHg] (09/09/14 2:36 PM) Problem List Condition Effective Dates Status [...] Cymbalta 60 mg oral delayed release capsule 1 caps, Oral, Daily, # 90 caps, 0 Refill(s), Pharmacy: [facility], 1 caps Oral Daily Start Date: 08/07/14 Status: Ordered hydrochlorothiazide 25 mg oral tablet 25 mg, Oral, Daily, # 90 tabs, 0 Refill(s), [facility]: [facility], 25 mg Oral Daily Start Date: 08/10/14 Status: Ordered losartan 50 mg oral tablet 1 tabs, Oral, Daily, # 90 tabs, 3 Refill(s), [facility], 1 tabs Oral Daily,x90 days Start Date: 04/17/14 Stop Date: 04/12/15 Status: Ordered NIFEdipine 60 mg oral tablet, extended release 1 tabs, Oral, Daily, # 90 tabs, 0 Refill(s), [facility], 1 tabs Oral Daily Start Date: 08/13/14 Status: Ordered potassium chloride 10 mEq oral tablet, extended release See Instructions, TAKE ONE TABLET BY MOUTH DAILY, # 90 tabs, 3 Refill(s), [facility], TAKE ONE TABLET BY MOUTH DAILY Special Instructions: TAKE ONE TABLET BY MOUTH DAILY Start Date: 04/17/14 Status: Ordered sotalol 80 mg oral tablet See Instructions, Take one-half tablet by mouth twice daily, # 90 tabs, 0 Refill (s), [facility]: [facility], Take one-half tablet by mouth twice daily Special Instructions: Take one-half tablet by mouth twice daily Start Date: 08/07/14 Status: Ordered Vitamin D3 400 intl units [...] Site CABG - Coronary artery bypass graft 2007 Colonoscopy1 2006 Hernia repair2 2005 Breast biopsy [...] Smoking Status Never smoker Assessment and Plan No data available for this section
--- OUTSIDE RECORDS SUMMARY | 2016-09-17 08:40 | XMS REPORT | Continuity of Care Document ---
Author Author Christopher HARDNE, Michel [facility] Address [address] [place] [address] Phone Care Team Providers Care Sole Stapler Welt Name Role Phone Filipe Ramires CHANELLE Unavailable Payers Payer name Insurance type Covered constitution party ID Authorization(s) Unknown Problems Condition Effective Dates (start - stop) Clinical Status CAD, Unspecified - *Chronic Depression - *Chronic Respiratory Insufficiency - *Chronic DRUG ALLERGY NEC - *Chronic Mixed hyperlipidemia - *Chronic Malaise and fatigue - *Chronic Weakness of both legs - *Chronic Subscapular pain - *Acute UTI (urinary tract infection) - *Acute Tinea pedis - *Acute Ischemic heart disease - *Chronic Abdominal pain - Episodic Cardiac dysrhythmia, unspecified - Episodic Hypertension, Benign - *Chronic Foot pain - Improved Depression - *Chronic Cough - *Chronic Chronic ischemic heart disease, unspecified [...] unspecified - Episodic Hypertension, Benign - *Chronic Left foot pain - *Acute Osteoporosis - *Chronic CAD (coronary artery disease) - *Chronic Depression - *Chronic Hyperlipidemia - *Chronic Hypertension, Benign - *Chronic Back pain - *Chronic Actinic keratosis - *Acute Allergic rhinitis, cause unspecified - Episodic Backache - *Chronic Chronic ischemic heart disease, unspecified - *Chronic Hypertension, Benign - *Chronic Depression - *Acute Abdominal pain, left lower quadrant - Intermittent Chronic ischemic heart disease, unspecified - *Chronic Knee pain, left - *Chronic Abdominal Pain - *Acute Chronic ischemic heart disease, unspecified - *Chronic Lumbago - *Acute Diarrhea - *Acute Nausea alone - *Acute Hyponatremia - *Acute Sinusitis, acute - *Acute GERD - *Controlled Dysphagia, unspecified - *Acute GERD - *Controlled CAD, Unspecified - *Chronic Hypertension, Benign - *Chronic Edema - *Resolved Pain in limb - *Acute Arrhythmia - *Controlled Depression - [...] keratosis - *Chronic Rib fracture - *Acute Abdominal pain, generalized - *Chronic Family History Family Member Diagnosis Age At [...] Dosage Effective Dates (start - stop) Status losartan 50 mg tablet take 1 tablet (50MG) by oral route every day 50 MG - No Longer Active aspirin 81 mg tablet,delayed release take 1 [...] Oral route every day 0 - Active hydrochlorothiazide 25 mg tablet Take 1 tablet by mouth every day. 2013 - Active nifedipine ER 60 mg tablet,extended release Take 1 tablet by mouth every day. - Active sotalol 80 mg tablet Take 0.5 tablets by mouth twice a day. - Active losartan 50 mg tablet take 1 tablet (50MG) by oral route every day 50 MG - Active Cymbalta 30 mg capsule,delayed release take 1 capsule (30MG) by oral route every day 30 MG - Active Immunizations Vaccine Date Status Comments [...] Height Weight Pulse Rate Blood Pressure Temperature /13:33:00 61.50 in 149.00 lbs 68 /min 120/80 mm[Hg] /13:36:00 114/74 mm[Hg] Procedures Procedure Date Unknown Encounters Encounter Location Date Patient Visit [facility] Mur Card Patient Visit [facility] Patient Visit [facility] Patient Visit [facility] Patient Visit [facility] Patient [facility] Patient Visit [facility] Patient [facility] Patient Visit Patient [facility] Patient Visit [facility] New Patient Visit [facility] New Patient [facility] Patient Visit [facility] New Patient [facility] Patient Visit [facility] New Patient Visit [facility] Card Patient [facility] Patient Visit [facility] New IM Patient Visit [facility] New Surg Patient Visit [facility] Patient Visit [facility]astro Patient Visit [facility] New Patient Visit [facility] New Patient Visit [facility] Advance Directives Directive Effective Date Unknown
--- OUTSIDE RECORDS SUMMARY | 2016-09-17 08:40 | XMS REPORT | Referral Summary ---
Author Author [facility] Organization [facility] Address Unknown Phone Unavailable Care Team Providers Care Community Living Coach Name Role Phone Chun Olivo Primary Care Physician [phone] Encounter VC Date(s): 08/26/15 - 08/26/15 [facility], [address] ZAKIYA Cabrera [id number] Discharge Disposition: 01-Home or Self Care Attending Physician: Chun Olivo DO Admitting Physician: Chun Olivo DO Vital Signs Most recent to 1 oldest [Reference Range]: Temperature Tympanic 36.4 degC [36.6-38.1 degC] *LOW* (08/26/15 1:15 PM) Peripheral Pulse 77 bpm Rate [60-100 bpm] (08/26/15 1:15 PM) Blood Pressure 142/64 mmHg [90-140/60-90 mmHg] *HI* (08/26/15 1:15 PM) Problem List Condition Effective Dates Status [...] Daily, # 90 tabs, 0 Refill(s), Pharmacy: [facility], 1 tabs Oral Daily Start Date: 08/09/15 Status: Ordered atorvastatin 20 mg oral tablet 20 mg 1 tabs, Oral, Daily, # 30 tabs, 2 Refill(s), Pharmacy: [facility] # [id number], 1 tabs Oral Daily Start Date: 07/20/15 Status: Ordered calcium citrate 500 mg, Oral, Daily, 0 Refill(s) Start Date: 12/30/13 Status: Ordered cyanocobalamin 1000 mcg sublingual tablet 1,000 mcg 1 tabs, SubLingual, Daily, # 90 tabs, 3 Refill(s), Pharmacy: [facility] #[id number], 1 tabs SubLingual Daily,x90 days Start Date: [...] Date: 08/04/15 Stop Date: 07/29/16 Status: Ordered Ultram 50 mg oral tablet 50 mg 1 tabs, Oral, q6hr, as needed for pain, # 30 tabs, 0 Refill(s) Start Date: 08/26/15 Stop Date: 09/26/15 Status: Ordered Vitamin D3 400 intl units [...] smoker Assessment and Plan Extracted from: Title: Left hip pain, left greater Author: Chun Olivo DO Date: 08/26/15 trochanteric injection Assessment/Plan Left hip pain, Left hip pain 1. Imaging of the left hip was negative for any bony disruption or significant arthritis of the hip. I suspect the pain is secondary to greater trochanteric bursitis. This was explained in detail to the patient, she voiced understanding. Ordered: Office Visit Level 4 Est 13070 Trochanteric bursitis of left hip Procedure: Greater trochanteric bursa injection Indication: Symptomatic trochanteric bursitis Location: Left greater trochanteric bursa Medication: 1 mL of Marcaine, 1 mL of one percent lidocaine without epinephrine, 80 mg of Kenalog. Description: With the patient laying in the right lateral recumbent position and the right hip flexed at 45 with the knee flexed at 45 angle, they greater trochanteric bursa was palpated and marked for injection. The area was cleansed with Betadine to create a sterile field. Drip was applied. Injection was done using sterile technique with the combined solution of Marcaine, Kenalog and one percent lidocaine without epinephrine. Patient tolerated treatment well, the area was cleansed and compression dressing was applied. Prescription was given for Ultram, one tablet every 6 hours as needed for pain. Follow-up if worsening presentation or recurrence of her symptoms. Ordered: traMADol, 50 mg 1 tabs, Oral, q6hr, as needed for pain, # 30 tabs, 0 Refill(s) Office Visit Level 4 Est 02509
--- OUTSIDE RECORDS SUMMARY | 2016-09-17 08:40 | XMS REPORT | Referral Summary ---
Author Author [facility] Organization [facility] Address Unknown Phone Unavailable Care Team Providers Care Manager Statistical Programming Name Role Phone Bryan Ramires Primary Care Physician [phone] Encounter Date(s): 11/02/14 - 11/02/14 [facility] [address] [facility] [place] [address] Discharge Diagnosis: Calcaneal fracture Discharge Disposition: [...] Daily, # 90 caps, 0 Refill(s), Pharmacy: [facility], 1 caps Oral Daily Start Date: 03/10/15 Status: Ordered hydrochlorothiazide 25 mg oral tablet 25 mg, Oral, Daily, # 90 tabs, 0 Refill(s), [facility], 25 mg Oral Daily Start Date: 03/10/15 Status: Ordered losartan 50 mg oral tablet 1 tabs, Oral, Daily, # 90 tabs, 3 Refill(s), [facility], 1 tabs Oral Daily,x90 days Start Date: 04/17/14 Stop Date: 04/12/15 Status: Ordered Nifedical XL 60 mg oral tablet, extended release See Instructions, Take 1 tablet by mouth daily, # 90 unknown unit, [facility]Rx: [facility], Take 1 tablet by mouth daily Start Date: 02/09/15 Status: Ordered potassium chloride 10 mEq oral tablet, extended release See Instructions, TAKE ONE TABLET BY MOUTH DAILY, # 90 tabs, 3 Refill(s), [facility]: [facility], TAKE ONE TABLET BY MOUTH DAILY Start Date: 04/17/14 Status: Ordered sotalol 80 mg oral tablet See Instructions, Take one-half tablet by mouth twice daily, # 90 tabs, 0 Refill (s), [facility], Pt needs to schedule appointment [...]
--- OUTSIDE RECORDS SUMMARY | 2016-09-17 08:40 | XMS REPORT | Referral Summary ---
Author Author [facility] Organization [facility] Address Unknown Phone Unavailable Care Team Providers Care Prep Room Supervisor Name Role Phone Chun Olivo Primary Care Physician [phone] Encounter VC Date(s): 09/08/15 - 09/08/15 [facility] [address] [place] [address] ZAKIYA Cabrera [id number] Discharge Diagnosis: Coronary heart disease Discharge Diagnosis: H/O coronary artery bypass surgery Discharge Diagnosis: Chronic GERD Discharge Diagnosis: Hypercholesteremia Discharge Diagnosis: Statin intolerance Discharge Disposition: 01-Home or Self Care Attending Physician: Michel White MD Admitting Physician: Michel White MD Referring Physician: Filipe Ramires MD Vital Signs Most recent to 1 oldest [Reference Range]: Peripheral Pulse 68 bpm Rate [60-100 bpm] (09/08/15 1:12 PM) Blood Pressure 130/70 mmHg [90-140/60-90 mmHg] (09/08/15 1:12 PM) Problem List Condition Effective Dates Status [...] Daily, # 90 tabs, 3 Refill(s), Pharmacy: [facility] #[id number], 1 tabs SubLingual Daily,x90 days Start Date: [...] days, # 90 tabs, 3 Refill(s), Pharmacy: [facility], 0.5 tabs Oral BID,x90 days [...] Extracted from: Title: Office Visit Note Author: Michel White MD Date: 09/08/15 Assessment/Plan 1.Coronary heart disease 2.Hypercholesteremia 3.Chronic GERD 4.H/O coronary artery bypass surgery 5.Statin intolerance Discussion:She seems clinically very stable. I agree with statin therapyand I am surprised that she is taking it. She has previously declined allcholesterol medications. I advised a follow-up visit in 6-12 monthswe can see her any time if she has more difficulty. It's likely that she has definite coronary artery pathology. I think it's best to manage conservatively given her preferences and her age.
--- OUTSIDE RECORDS SUMMARY | 2016-09-17 08:41 | XMS REPORT | Referral Summary ---
Author Author [facility] Organization [facility] Address Unknown Phone Unavailable Care Team Providers Care Part Time Name Role Phone Chun Olivo Primary Care Physician [phone] Encounter VC Date(s): 07/19/15 - 07/19/15 [facility], [address] ZAKIYA Cabrera [id number] Discharge Diagnosis: CAD (coronary artery disease) Discharge Disposition: 01-Home or Self Care Attending Physician: Chun Olivo DO Admitting Physician: Chun Olivo DO Vital Signs Most recent to 1 oldest [Reference Range]: Temperature Tympanic 36.6 degC [36.6-38.1 degC] (07/19/15 9:42 AM) Peripheral Pulse 66 bpm Rate [60-100 bpm] (07/19/15 9:42 AM) Blood Pressure 160/72 mmHg [90-140/60-90 mmHg] *HI* (07/19/15 9:42 AM) Problem List Condition Effective Dates Status [...] Daily, # 90 caps, 0 Refill(s), Pharmacy: [facility], 1 caps Oral Daily Start Date: 03/10/15 Status: Ordered hydrochlorothiazide 25 mg oral tablet See Instructions, Take 1 tablet by mouth daily, # 90 tabs, eRx: [facility], Take 1 tablet by mouth daily Start Date: 06/08/15 Status: Ordered KLOTRIX 10MEQ TAB SR See Instructions, Take 1 tablet by mouth daily, # 90 tabs, eRx: [facility], Take 1 tablet by mouth daily Start Date: 06/08/15 Status: Ordered losartan 50 mg oral tablet See Instructions, Take 1 tablet by mouth daily, # 90 tabs, eRx: [facility], Take 1 tablet by mouth daily Start Date: 06/08/15 Status: Ordered Nifedical XL 60 mg oral tablet, extended release See Instructions, Take 1 tablet by mouth daily, # 90 Each, eRx: [facility], Take 1 tablet by mouth daily Start Date: 06/08/15 Status: Ordered sotalol 80 mg oral tablet See Instructions, Take one-half tablet by mouth twice a day, # 90 tabs, eRx: [facility], Take one-half tablet by mouth twice a day Start Date: 06/08/15 Status: Ordered Vitamin D3 400 intl units oral tablet 2 tabs, Oral, Daily, 0 Refill(s) Start Date: 12/30/13 Status: Ordered Results Hematology Most recent to 1 oldest [Reference Range]: WBC [4.8-10.8 8.9 10*3/uL 10*3/uL] (07/19/15 10:43 AM) RBC [4.00-5.20] 4.94 (07/19/15 10:43 AM) Hgb [12.0-16.0 13.9 gm/dL gm/dL] (07/19/15 10:43 AM) Hct [37.0-47.0 %] 44.0 % (07/19/15 10:43 AM) MCV [82.0-99.0 fL] 89.1 fL (07/19/15 10:43 AM) MCH [27.0-32.0 pg] 28.1 pg (07/19/15 10:43 AM) MCHC [32.0-36.0 31.6 gm/dL gm/dL] *LOW* (07/19/15 10:43 AM) RDW [11.5-14.5 %] 13.6 % (07/19/15 10:43 AM) Platelet [150-400 405 10*3/uL 10*3/uL] *HI* (07/19/15 10:43 AM) MPV [8.8-14.8 fL] 9.6 fL (07/19/15 10:43 AM) Immature 0.3 % Granulocytes (07/19/15 10:43 AM) [0.0-1.0 %] Neutrophils [51-75 53 % %] (07/19/15 10:43 AM) Lymphocytes [20-46 31 % %] (07/19/15 10:43 AM) Monocytes [4-11 %] 11 % (07/19/15 10:43 AM) Eosinophils [0-4 %] 4 % (07/19/15 10:43 AM) Basophils [0-2 %] 1 % (07/19/15 10:43 AM) Neutro Absolute 4.71 10*3 [1.90-7.00 10*3] (07/19/15 10:43 AM) Lymph Absolute 2.79 10*3 [0.80-3.30 10*3] (07/19/15 10:43 AM) [place] Absolute 0.96 10*3 [0.30-1.00 10*3] (07/19/15 10:43 AM) Eos Absolute 0.34 10*3 [0.00-0.50 10*3] (07/19/15 10:43 AM) Baso Absolute 0.05 10*3 [0.00-0.20 10*3] (07/19/15 10:43 AM) Chemistry Most recent to 1 oldest [Reference Range]: Sodium Lvl [135-144 138 mEq/L mEq/L] (07/19/15 10:43 AM) Potassium Lvl 4.0 mEq/L [3.5-5.2 mEq/L] (07/19/15 10:43 AM) Chloride [99-111 97 mEq/L mEq/L] *LOW* (07/19/15 10:43 AM) CO2 [22-31 mEq/L] 31 mEq/L (07/19/15 10:43 AM) AGAP [3-20] 10 (07/19/15 10:43 AM) BUN [10-20 mg/dL] 20 mg/dL (07/19/15 10:43 AM) Glucose Lvl [70-99 105 mg/dL mg/dL] *HI* (07/19/15 10:43 AM) Creatinine Lvl 0.84 mg/dL [0.57-1.11 mg/dL] (07/19/15 10:43 AM) eGFR [>60 mL/min] >60 mL/min 1 (07/19/15 10:43 AM) Calcium Lvl 10.2 mg/dL [8.9-10.5 mg/dL] (07/19/15 10:43 AM) Albumin Lvl [3.4-4.8 4.0 gm/dL gm/dL] (07/19/15 10:43 AM) Total Protein 7.1 gm/dL [6.2-8.1 gm/dL] (07/19/15 10:43 AM) Globulin [1.8-4.0 3.1 gm/dL gm/dL] (07/19/15 10:43 AM) ALT [0-55 U/L] 12 U/L (07/19/15 10:43 AM) AST [5-34 U/L] 16 U/L (07/19/15 10:43 AM) Alk Phos [40-150 73 U/L U/L] (07/19/15 10:43 AM) Bili Total [0.2-1.2 0.8 mg/dL mg/dL] (07/19/15 10:43 AM) Vitamin B12 Lvl 217 pg/mL [213-816 pg/mL] (07/19/15 10:43 AM) Chol [0-199 mg/dL] 245 mg/dL *HI* (07/19/15 10:43 AM) Trig [0-149 mg/dL] 112 mg/dL (07/19/15 10:43 AM) HDL [40-84 mg/dL] 63 mg/dL (07/19/15 10:43 AM) LDL [0-130 mg/dL] 160 mg/dL *HI* (07/19/15 10:43 AM) VLDL Cholesterol 22 mg/dL [0-28 mg/dL] (07/19/15 10:43 AM) Cardiac Risk 3.9 [0.0-5.0] (07/19/15 10:43 AM) TSH with Reflex Free 2.19 T4 [0.35-4.94] (07/19/15 10:43 AM) 1Result Comment: Multiply eGFR results by 1.21 for race. Immunizations Vaccine Date Refusal Reason influenza virus vaccine, inactivated 04/08/14 influenza virus vaccine, live 04/15/10 pneumococcal 23-polyvalent vaccine 05/12/08 pneumococcal 23-polyvalent vaccine 04/21/97 tetanus-diphth toxoids (Td) adult/adol 10/13/05 zoster vaccine live 05/08/14 Procedures Procedure Date Related Diagnosis Body Site Destruction (eg, laser surgery, 07/19/15 electrosurgery, cryosurgery, chemosurgery, surgical curettement), premalignant lesions (eg, actinic keratoses); first lesion Destruction (eg, laser surgery, 07/19/15 electrosurgery, cryosurgery, chemosurgery, surgical curettement), premalignant lesions (eg, actinic keratoses); second through 14 lesions, each (List separately in addition to code for first lesion) CABG - Coronary artery bypass graft 2006 [...] Visit Note Author: Chun Olivo DO Date: 07/19/15 Assessment/Plan Acid reflux 1.Diet modification recommended. 2. Avoid offending foods. 3. Discontinued times. 4. Omeprazole 20 mg daily. Ordered: Office Visit Level 4 Est 75659 Vitamin D 25 Hydroxy Level Actinic keratosis 1.3 actinic keratosis lesions were treated today with cryotherapy. Ordered: Destruction premalignant lesion 1st Destruction premalignant lesion 2-14, Each CAD (coronary artery disease) 1. Continue with current medications. 2. Low-fat diet recommended. 3. We will order lipid panel, once we get results we will make further recommendations. 4. Low salt diet recommended. 5. Daily exercises recommended. 6. Better blood pressure control recommended. Esophageal dysphagia 1.Acid reflux management as above. 2. This becomes more bothersome then we plan on sending her to Dr. Recio for evaluationand possible EGD. Ordered: Office Visit Level 4 Est 57861 TSH with Reflex Free T4 Vitamin B12 Level HTN (hypertension) 1. Blood pressures elevated today. 2. Recommendations as above. 3. Follow-up in 2 weeks for recheck, blood pressures continued to be elevated then we may need to go up on her blood pressure medications. Ordered: CBC w/ Differential Office Visit Level 4 Est 88782 Mixed hyperlipidemia 1. Fasting lipid is pending. Ordered: Comprehensive Metabolic Panel Lipid Panel Office Visit Level 4 Est 10554 TSH with Reflex Free T4
--- OUTSIDE RECORDS SUMMARY | 2016-09-17 08:41 | XMS REPORT | Referral Summary ---
Author Author [facility] Organization [facility] Address Unknown Phone Unavailable Care Team Providers Care Quotation Clerk Name Role Phone Chun Olivo Primary Care Physician [phone] Encounter VC Date(s): 01/28/15 - 01/28/15 [facility] [address] [place] [address] ZAKI[place] Cabrera [id number] Discharge Diagnosis: Acute bronchitis Discharge Disposition: 01-Home or Self Care Attending Physician: Filipe Ramires MD Admitting Physician: Filipe Ramires MD Vital Signs Most recent to 1 oldest [Reference Range]: Temperature Tympanic 36.5 degC [36.6-38.1 degC] *LOW* (01/28/15 9:02 AM) Peripheral Pulse 64 bpm Rate [60-100 bpm] (01/28/15 9:02 AM) Respiratory Rate 16 br/min [14-20 br/min] (01/28/15 9:02 AM) Blood Pressure 118/62 mmHg [90-140/60-90 mmHg] (01/28/15 9:02 AM) SpO2 96 % (01/28/15 9:02 AM) Problem List Condition Effective Dates Status [...] Daily, # 30 tabs, 2 Refill(s), Pharmacy: [facility] # [id number], 1 tabs Oral Daily Start Date: 07/20/15 Status: Ordered calcium citrate 500 mg, Oral, Daily, 0 Refill(s) Start Date: 12/30/13 Status: Ordered cyanocobalamin 1000 mcg sublingual tablet 1,000 mcg 1 tabs, SubLingual, Daily, # 90 tabs, 3 Refill(s), Pharmacy: [facility] #[id number], 1 tabs SubLingual Daily,x90 days Start Date: [...] Patient Education Author: Filipe Ramires MD Date: 01/28 Family Medicine Acute Bronchitis Bronchitis is inflammation of the airways that extend from the windpipe into the lungs (bronchi). The inflammation often causes mucus to develop. This leads to a cough, which is the most common symptom of bronchitis. In acute bronchitis, the condition usually develops suddenly and goes away over time, usually in a couple weeks. Smoking, allergies, and asthma can make bronchitis worse. Repeated episodes of bronchitis may cause further lung problems. CAUSES Acute bronchitis is most often caused by the same virus that causes a cold. The virus can spread from person to person (contagious). SIGNS AND SYMPTOMS Cough. Fever. Coughing up mucus. Body aches. Chest congestion. Chills. Shortness of breath. Sore throat. DIAGNOSIS Acute bronchitis is usually diagnosed through a physical exam. Tests, such as chest X-rays, are sometimes done to rule out other conditions. TREATMENT Acute bronchitis usually goes away in a couple weeks. Often times, no medical treatment is necessary. Medicines are sometimes given for relief of fever or cough. Antibiotics are usually not needed but may be prescribed in certain situations. In some cases, an inhaler may be recommended to help reduce shortness of breath and control the cough. A cool mist vaporizer may also be used to help thin bronchial secretions and make it easier to clear the chest. HOME CARE INSTRUCTIONS Get plenty of rest. Drink enough fluids to keep your urine clear or pale yellow (unless you have a medical condition that requires fluid restriction). Increasing fluids may help thin your secretions and will prevent dehydration. Only take [id number] or prescription medicines as directed by your health care provider. Avoid smoking and secondhand smoke. Exposure to cigarette smoke or irritating chemicals will make bronchitis worse. If you are a smoker, consider using nicotine gum or skin patches to help control withdrawal symptoms. Quitting smoking will help your lungs heal faster. Reduce the chances of another bout of acute bronchitis by washing your hands frequently, avoiding people with cold symptoms, and trying not to touch your hands to your mouth, nose, or eyes. Follow up with your health care provider as directed. SEEK MEDICAL CARE IF: Your symptoms do not improve after 1 week of treatment. SEEK IMMEDIATE MEDICAL CARE IF: You develop an increased fever or chills. You have chest pain. You have severe shortness of breath. You have bloody sputum. You develop dehydration. You develop fainting. You develop repeated vomiting. You develop a severe headache. MAKE SURE YOU: Understand these instructions. Will watch your condition. Will get help right away if you are not doing well or get worse. Document Released: 07/19/2005 Document Revised: 02/11/2014 Document Reviewed: [employer] Patient Information 2015 [employer]. This information is not intended to replace advice given to you by your health care provider. Make sure you discuss any questions you have with your health care provider. Follow Up With: Where: When: Filipe Ramires [address] [place] [address] Drive; [facility] ZAKIYA Davis [phone] Business ([phone]) Within 3 to 5 days, only if needed Comments: Extracted from: Title: Office Visit Note Author: Filipe Ramires MD Date: 01/28/15 Assessment/Plan Acute bronchitis She was advised to use Robitussin-DM or Delsym cough syrup. She additionally will be placed on Ceftin 500 mg twice daily 1 week. She has a mild degree of bronchospasm but does not require bronchodilator therapy at this time. She will report if she develops any shortness of breath. Orders: cefuroxime, 500 mg 1 tabs, Oral, BID, X 7 days, # 14 tabs, 0 Refill(s) , Pharmacy: [facility] #[id number], 1 tabs Oral BID,x7 days
--- OUTSIDE RECORDS SUMMARY | 2016-09-17 08:41 | XMS REPORT | Referral Summary ---
Author Author [facility] Organization [facility] Address Unknown Phone Unavailable Care Team Providers Care Star Route Mail Driver Name Role Phone Chun Olivo Primary Care Physician [phone] Encounter VC Date(s): 08/04/15 - 08/04/15 [facility] [address] [place] [id number] Discharge Diagnosis: Major depression Discharge Disposition: 01-Home or Self Care Attending Physician: Chun Olivo DO Admitting Physician: Chun Olivo DO Vital Signs Most recent to 1 oldest [Reference Range]: Peripheral Pulse 82 bpm Rate [60-100 bpm] (08/04/15 10:32 AM) Blood Pressure 135/72 mmHg [90-140/60-90 mmHg] (08/04/15 10:32 AM) SpO2 95 % (08/04/15 10:32 AM) Problem List Condition Effective Dates Status [...] Daily, # 30 tabs, 2 Refill(s), Pharmacy: [facility] # [id number], 1 tabs Oral Daily Start Date: 07/20/15 Status: Ordered calcium citrate 500 mg, Oral, Daily, 0 Refill(s) Start Date: 12/30/13 Status: Ordered cyanocobalamin 1000 mcg sublingual tablet 1,000 mcg 1 tabs, SubLingual, Daily, # 90 tabs, 3 Refill(s), Pharmacy: [facility] #[id number], 1 tabs SubLingual Daily,x90 days Start Date: [...] days, # 90 tabs, 3 Refill(s), Pharmacy: [facility], 1 tabs Oral Daily,x90 days [...] days, # 90 tabs, 3 Refill(s), Pharmacy: [facility], 1 tabs Oral Daily,x90 days [...] Daily, # 90 tabs, 3 Refill(s), Pharmacy: [facility], 1 tabs Oral Daily,x90 days Start Date: 08/04/15 Stop Date: 07/29/16 Status: Ordered sotalol 80 mg oral tablet 40 mg 0.5 tabs, Oral, BID, X 90 days, # 90 tabs, 3 Refill(s), Pharmacy: [facility], 0.5 tabs Oral BID,x90 days [...] Visit Note Author: Chun Olivo DO Date: 08/04/15 Assessment/Plan General weakness 1. I do not think her weakness is secondary to the statin. This is most likely related to her marginally low vitamin B-12. 2. We will start her on vitamin B replacement and remeasure her level in 3 months. If no improvement then we plan on giving her B-12 injections. Ordered: Office Visit Level 4 Est 08659 GERD (gastroesophageal reflux disease) 1. I agree with stopping the omeprazole especially since she is not having any symptoms. 2. Any with diet modification. 3. May use Zantac as needed. 4. Follow up if worsening presentation. Ordered: Office Visit Level 4 Est 98256 HTN (hypertension) 1. Blood pressure is controlled at this time. 2. Continue with low salt diet. 3. Continue with current medications. Ordered: Office Visit Level 4 Est 43019 Major depression 1. If she has never had problems with depression, we may consider stopping Cymbalta in the spring or summer. We will readdress this at next office visit. Mixed hyperlipidemia 1. Continue atorvastatin, I do not think this is the cause of her neck discomfort. 2. We plan on rechecking her lipid levels in 6 months to a year. Ordered: Office Visit Level 4 Est 99194 Orders: cyanocobalamin, 1,000 mcg 1 tabs, SubLingual, Daily, # 90 tabs, 3 Refill(s), Pharmacy: [facility] #[id number], 1 tabs SubLingual Daily,x90 days DULoxetine, 60 mg 1 caps, Oral, Daily, # 90 caps, 3 Refill(s), Pharmacy: [facility], 1 caps Oral Daily,x90 days hydrochlorothiazide, 25 mg 1 tabs, Oral, Daily, X 90 days, # 90 tabs, 3 Refill (s), Pharmacy: [facility], 1 tabs Oral Daily,x90 days losartan, 50 mg 1 tabs, Oral, Daily, X 90 days, # 90 tabs, 3 Refill(s), Pharmacy: [facility], 1 tabs Oral Daily,x90 days NIFEdipine, 60 mg 1 tabs, Oral, Daily, X 90 days, # 90 tabs, 3 Refill(s), Pharmacy: [facility], 1 tabs Oral Daily,x90 days potassium chloride, 10 mEq 1 tabs, Oral, Daily, # 90 tabs, 3 Refill(s), Pharmacy: [facility], 1 tabs Oral Daily,x90 days sotalol, 40 mg 0.5 tabs, Oral, BID, X 90 days, # 90 tabs, 3 Refill(s), Pharmacy: [facility], 0.5 tabs Oral BID,x90 days
--- OUTSIDE RECORDS SUMMARY | 2016-09-17 08:42 | XMS REPORT | Continuity of Care Document ---
Author Author [facility] Organization [facility] Address Unknown Phone Unavailable Allergies Medications Problems Procedures Results Encounters ACCT No. Visit Date/Time Discharge Status Pt. Type Provider Facility Loc./Unit Complaint [id number] 09/10/2013 13:24:00 09/10/2013 23 :59:59 CLS Outpatient [id number] 07/09/2013 13:59:00 07/09/2013 23 :59:59 CLS Outpatient
--- NOTE | 2016-09-17 09:40 | DI ---
Indication: ITS.REASON: pain PROCEDURE: FOOT LEFT 3 VIEWS: Encounter: Initial Comparison: None Findings: There is no acute fracture, dislocation or malalignment identified. Impression: No acute osseous abnormality. .
--- NOTE | 2016-09-17 09:46 | NUR ---
LAB AT BEDSIDE FOR BLOOD DRAW.
[2016-09-17] MEDS ORDERED: POTA10TA14 PO (10:00)
[2016-09-17] MEDS ORDERED: CYAN10009 PO (10:01)
[2016-09-17] MEDS ORDERED: LOSA50TA52 PO (10:02)
[2016-09-17] MEDS ORDERED: DULO60CA56 PO (10:02)
[2016-09-17] MEDS ORDERED: CALC-689 PO (10:03)
[2016-09-17 10:11] LABS: BASOPHILS % (AUTO) 0.5 % (0-2); EOSINOPHILS # (AUTO) 0.3 T/MM3 (0-0.5); EOSINOPHILS % (AUTO) 3.6 % (0-4); HGB - HEMOGLOBIN 12.9 GM/DL (12-16); IMMATURE GRANULOCYTE # (AUTO) 0.02 T/MM3 (0.00-0.03); IMMATURE GRANULOCYTE % (AUTO) 0.2 % (0.0-0.5); LYMPHOCYTES # (AUTO) 2.4 T/MM3 (1-4.8); LYMPHOCYTES % (AUTO) 28.6 % (23-45); MEAN CORPUSCULAR HGB 28.2 UUG (26-34); MEAN CORPUSCULAR HGB CONC(MCHC 31.5 GM/DL (31-37); MEAN CORPUSCULAR VOLUME 89.5 UM3 (80-100); MEAN PLATELET VOLUME 9.8 UM3 (9.4-12.4); MONOCYTES # (AUTO) 0.8 T/MM3 (0-0.8); NEUTROPHILS #(AUTO)-ABSOLUTE 4.9 T/MM3 (1.8-7.7); NEUTROPHILS % (AUTO) 58.1 % (33-66); RED BLOOD COUNT 4.58 M/MM3 (4.00-5.20); WBC - WHITE BLOOD COUNT 8.4 T/MM3 (4.5-11.0)
[2016-09-17 10:22] LABS: ALBUMIN 3.6 G/DL (3.5-5.0); ALBUMIN/GLOBULIN RATIO 1.1 RATIO (1.1-2.2); ALKALINE PHOSPHATASE 76 U/L (38-126); ALT (SGPT) 20 U/L (9-52); ANION GAP 7 MEQ/L (5-15); AST (SGOT) 17 U/L (14-36); BUN/CREATININE RATIO 19 RATIO (6-26); CALCIUM 9.2 MG/DL (8.4-10.2); CHLORIDE 101 MEQ/L (98-107); CO2 - CARBON DIOXIDE 31 MEQ/L (22-30); CREATININE 0.8 MG/DL (0.7-1.2); GLOMERULAR FILTRATION RATE 68; GLUCOSE 115 MG/DL (65-110); POTASSIUM 3.6 MEQ/L (3.6-5); SODIUM 139 MEQ/L (134-144); TOTAL PROTEIN 6.9 G/DL (6.3-8.2)
--- NOTE | 2016-09-17 10:39 | ERPDOC ---
Departure Disposition Decision Date: Sep 17, 2016 Disposition Decision Time: 10:38 Disposition: 01 DISCHARGED HOME, SELF-CARE Impression Impression Impression: Primary Impression: Foot pain, left Severity: Moderate Condition: Improved Seen By: Physician only Referrals: CRISTHIAN CLARK DO (Family) [facility] 2 Days Patient Instructions: Leg Pain (ED) Problems/Meds/Labs Reviewed?: Yes Medications reviewed and manag: Yes Follow up care ordered?: Yes Mental Status: Alert, Oriented Scripts Hydrocodone/Acetaminophen (Bradley 5-325 Tablet) 5-325 Tablet 1 TAB PO Q4HR Y for PAIN for 3 Days, #18 TAB 0 Refills Prov: LUISA HANNA DO 09/17/16 Prednisone (Prednisone) 20 Mg Tablet 40 MG PO DAILY for 5 Days, #10 TAB 0 Refills Take daily each morning Prov: LUISA HANNA DO 09/17/16 Sulfamethoxazole/Trimethoprim (Bactrim Ds Tablet) 1 Each Tablet 1 TAB PO BID for 10 Days, #20 TAB 0 Refills Prov: LUISA HANNA DO 09/17/16 HPI - Lower Extremity General Chief Complaint: Lower Extremity Pain Stated Complaint: L FOOT PAIN Time Seen by Provider: 08:35 Source: patient, family Exam Limitations: no limitations HPI - Lower Extremity Initial Comments 86-year-old female presents to the emergency department with a chief complaint of pain in her left foot. Patient noted onset of symptoms one day ago. Symptoms have been persistent in nature since onset. Patient denies any known trauma or injury to the left foot. Patient notes a moderate dull aching discomfort without radiation to the dorsal surface of the left foot. She notes that the pain increases with ambulation and improves with rest and positioning. Patient denies any other complaints or associated symptoms. She was at home when the symptoms began. Symptoms have been persistent in nature since onset. Symptoms had a gradual progression. Occurred At: home Onset/Timing: Gradual Allergies: Coded Allergies: verapamil (Verified Allergy, Severe, 09/17/16) codeine (Verified Allergy, Mild, ABDOMINAL DISCOMFORT, 09/17/16) Iodinated Contrast Media - Oral and (Verified Allergy, Unknown, 09/17/16) atorvastatin (Verified Allergy, Unknown, 09/17/16) lovastatin (Verified Allergy, Unknown, 09/17/16) Past History Past Medical History Metabolic: hypertension Cardiac: angina GI: other Female: UTI Surgical History General: appendix, gallbladder, hernia Cardiac: cardiac bypass Family History Family History: Negative Social History Smoking Status: Never smoker Substance Use Type: does not use Alcohol Intake: none Review of Systems Constitutional Constitutional: DENIES: chills, fever Eyes General: DENIES: erythema, exudate Lids/Accessories: DENIES: erythema, swelling Vision: DENIES: acuity, blurring ENMT Ears: DENIES: drainage, erythema Hearing: DENIES: hearing loss Balance: DENIES: ataxia, falling to one side Sinuses: DENIES: congestion, pain Mouth/Throat: DENIES: painful swallowing, sore throat Teeth: DENIES: pain Jaw: DENIES: pain Cardiovascular Cardiac: DENIES: chest pain, dyspnea on exertion Rhythm/Rate: DENIES: irregular beat, palpitations Vascular: DENIES: pedal edema, unilateral swelling Pulmonary Respiratory: DENIES: cough, dyspnea, pleuritic chest pain, sputum GI Upper Abdomen: DENIES: nausea, pain, vomiting Lower Abdomen: DENIES: diarrhea, pain General: DENIES: dysuria, pain Musculoskeletal General: pain, tenderness, DENIES: joint pain Integumentary Skin: DENIES: itching, rash Neurological General: DENIES: headache, numbness, weakness Psychiatric Psychiatric: DENIES: emotional instability, suicidal ideation/attempt Endocrine Endocrine: DENIES: polydipsia, polyphagia Hematologic/Lymphatic Hematologic/Lymphatic: DENIES: frequent nosebleeds, lymphadenopathy Allergic/Immunological Allergic/Immunoligical: DENIES: allergic reactions, hives Physical Exam General General Nourishment: well nourished, well developed, appears stated age, no acute distress, adult General Body Habitus: well groomed Vitals and Pain First Documented Vital Signs Date Time Temp Pulse Resp B/P Pulse Ox O2 Delivery O2 Flow Rate FiO2 09/17/16 08:36 98.5 90 14 153/70 96 Room Air Weight: Kilograms: 68.900 Height (feet): 5 Height (inches): 1.00 Triage Pain Scale: RN VS reviewed by Provider: Yes Normal Exams: Head: Normocephalic w/o trauma Eyes: Pupils are PERRLA w/ EOMI, No scleral icterus, irritation, or foreign bodies noted ENMT: No facial trauma, nasal exudates, pharyngeal erythema, or exudates are noted Dental: No fractured, loose, or missing teeth noted Neck: Full range of motion, without adenopathy, JVD, bruits or thyromegaly Chest/Resp: Clear all foley, with good airflow, and symmetry bilaterally CV: Regular rate and rhythm, without murmur or gallop, Pulses 2+ all extremities, capillary refill, <2 seconds all ext., no pedal edema noted Abdomen: Bowel sounds positive, soft, non-tender, non-distended, no hepatosplenomegaly, masses or bruits noted Lymphatic: No lymphadenopathy, or lymphedema noted Musculoskeletal: No tenderness, or deformity noted, good range of motion, all extremities Integumentary: No rashes, hives, or bruising noted, hair and nails, without abnormality Neurologic: Patient is alert, and oriented, cranial nerves, motor/sensory/ cerebellar, exams w/o gross deficits, to observation Musculoskeletal (brief) Comments Right foot - full range of motion. Diffusely tender across the dorsal surface of the midfoot. Trace edema. Faintly erythematous overlying the top. No excessive warmth. Pulses intact. Sensation intact. Capillary refill less than 2. Skin is intact. No focal bony tenderness. No other tenderness in the right lower extremity. All other extremities are unremarkable. Differential Diagnoses Considering: Cellulitis, Fracture, Sprain, Strain, Other (gout) Progress Results/Orders Orders Procedure Category Date Status Time Foot Left 3 Views RAD 09/17/16 Resulted 09:08 Cbc W/Auto LAB 09/17/16 Complete Diff-Reflex Manual Cmp - Comprehensive LAB 09/17/16 Complete Metabolic Uric Acid LAB 09/17/16 Complete C-Reactive Protein - LAB 09/17/16 Complete CRP 09:43 Cam Boot [place] 09/17/16 Complete 10:41 Lab Results Laboratory Tests Test 09/17/16 09:49 White Blood Count 8.4T/MM3 Red Blood Count 4.58M/MM3 Hemoglobin 12.9GM/DL Hematocrit 41.0% Mean Corpuscular Volume 89.5UM3 Mean Corpuscular Hemoglobin 28.2UUG Mean Corpuscular Hemoglobin Concent 31.5GM/DL RDW Standard Deviation 42.9FL Platelet Count 374T/MM3 Mean Platelet Volume 9.8UM3 Immature Granulocyte % (Auto) 0.2% Neutrophils (%) (Auto) 58.1% Lymphocytes (%) (Auto) 28.6% Monocytes (%) (Auto) 9.0% Eosinophils (%) (Auto) 3.6% Basophils (%) (Auto) 0.5% Absolute Immature Granulocyte (auto 0.02T/MM3 Absolute Neutrophils (auto) 4.9T/MM3 Absolute Lymphocytes (auto) 2.4T/MM3 Absolute Monocytes (auto) 0.8T/MM3 Absolute Eosinophils (auto) 0.3T/MM3 Absolute Basophils (auto) 0.0T/MM3 Turbidity < 20 Sodium Level 139MEQ/L Potassium Level 3.6MEQ/L Chloride Level 101MEQ/L Carbon Dioxide Level 31MEQ/L Anion Gap 7MEQ/L Blood Urea Nitrogen 15.0MG/DL Creatinine 0.8MG/DL Glomerular Filtration Rate Calc 68 BUN/Creatinine Ratio 19RATIO Glucose Level 115MG/DL Calculated Osmolality 270MOSM/KG Uric Acid 5.0MG/DL Calcium Level 9.2MG/DL Total Bilirubin 0.80MG/DL Icterus Index < 2 Aspartate Amino Transf (AST/SGOT) 17U/L Alanine Aminotransferase (ALT/SGPT) 20U/L Alkaline Phosphatase 76U/L C-Reactive Protein 16.0MG/L Total Protein 6.9G/DL Albumin 3.6G/DL Globulin 3.3G/DL Albumin/Globulin Ratio 1.1RATIO Chemistry Specimen Hemolysis < 15 Progress Progress Imaging is discussed in detail with the patient and family and questions are answered. Patient has unremarkable lab work. Patient's only abnormal value is the CRP of 16. This is nonspecific. Patient is discussed with orthopedics on- call who is in agreement with the current plan of management. Patient is given prescriptions for prednisone and Bactrim DS. Patient declines offered analgesic pain medication in the emergency Department. Patient is placed in a cam walker boot with good alignment by the RN. Patient is distal neurovascular intact post-application of boot. Patient is discharged home in improved condition. Patient's follow up as instructed. Patient is to return to the emergency Department if her condition worsens or changes in any manner. Patient is in agreement with the current plan of management. Patient is to follow up as instructed. Patient was provided with a prescription for analgesic pain medication in the emergency department. Xray Xray : Xray: Foot L Interpretation: Normal, Reviewed Written Report LUISA HANNA DO Sep 17, 2016 10:39
[2016-09-17] MEDS ORDERED: PRED20TA PO (10:40)
[2016-09-17] MEDS ORDERED: SULF1TAB42 PO (10:40)
--- NOTE | 2016-09-17 11:07 | NUR ---
STATUS PT UNABLE TO BEAR WEIGHT ON L FOOT AFTER CAM BOOT APPLICATION. DR. HANNA NOTIFIED. PT INSTRUCTED TO USE WALKER AT HOME WITH NON-WEIGHT BEARING STATUS PER DR. HANNA AT THIS TIME.
[2016-09-17] MEDS ORDERED: HYDR-4246 PO (11:12)
[2016-09-17 11:16] VITALS: BP 149/67; PULSE 83; RESP 14; TEMP 98.5; O2SAT 98
--- NOTE | 2016-09-17 11:16 | NUR ---
DISCHARGE WRITTEN INSTRUCTIONS WITH PREDNISONE, BACTRIM, AND NORCO RX REVIEWED AND SENT WITH PT. PT VERBALIZES UNDERSTANDING OF DI AND MEDICATION, DENIES QUESTIONS. CONTINUES TO REPORT PAIN /, BUT CONTINUES TO REFUSE PAIN MEDICATION BECAUSE "I HAVEN'T EATEN ANYTHING TODAY SO I DON'T THINK IT'S A GOOD IDEA." PT EXITS ER BY W/C TO LOBBY ACCOMP BY FAMILY AT THIS TIME.
== END 2016-09-17 11:16 | disposition home or self-care (01) ==
LOC: ED 08:34
DX: M79.672 Pain in left foot (principal)
CPT/HCPCS: 36415; 73630; 80053; 84550; 85025; 86140; 99283; L4386